=== PATIENT | female | born 1950 | race Caucasian/White ===

== ENCOUNTER 2022-02-10 12:03 | Emergency (ER) | payer MEDICARE, BC ==
[2022-02-10] MEDS ORDERED: Ciprofloxacin 500 MG Tab ONE (14:30)
[2022-02-10] MEDS ORDERED: Phenazopyridine 100 MG Tab ONE (14:30)
[2022-02-10 16:13] VITALS: BP 137/68; PULSE 80
== END 2022-02-10 14:45 | disposition home or self-care (01) ==
LOC: LB.ED 12:03
DX: N39.0 Urinary tract infection, site not specified (principal); Z88.2 Allergy status to sulfonamides
CPT/HCPCS: 81001; 87086; 99282; 99283; A9270-GY